=== PATIENT | male | born 1995 | race African-American/Black ===

== ENCOUNTER 2017-09-07 19:02 | Emergency (ER) | payer OTHER ==
[~2017-09-07 19:02] MED LIST: ALBU8.5H3 IH
== END 2017-09-07 20:00 | disposition left against medical advice (07) ==
LOC: EMS 19:04
DX: Z53.21 Procedure and treatment not carried out due to patient leaving prior to being seen by health care provider (principal)

== ENCOUNTER 2018-04-05 15:58 | Emergency (ER) | payer OTHER ==
[~2018-04-05] VITALS: Ht 175.3 cm; Wt 86.4 kg
[2018-04-05] MEDS ORDERED: METHOCARBAMOL 500 MG TABLET PO ONE (18:00)
[2018-04-05] MEDS ORDERED: KETOROLAC TROMETHAMINE 10 MG TABLET PO ONE (18:00)
[2018-04-05 18:40] VITALS: BP 135/90
== END 2018-04-05 18:42 | disposition home or self-care (01) ==
LOC: EMS 15:58
DX: S46.011A Strain of muscle(s) and tendon(s) of the rotator cuff of right shoulder, initial encounter (principal); J45.909 Unspecified asthma, uncomplicated; W18.39XA Other fall on same level, initial encounter; Y93.89 Activity, other specified; Y92.89 Other specified places as the place of occurrence of the external cause; Y99.8 Other external cause status
CPT/HCPCS: 99284